=== PATIENT | male | born 1975 | race Hispanic/Latino ===

== ENCOUNTER 2024-12-19 09:06 | Emergency (ER) | payer OTHER ==
[~2024-12-19] VITALS: Ht 170.2 cm; Wt 83.9 kg
[~2024-12-19 09:06] MED LIST: CLINDAMYCIN HC150 MG PO; DOXYCYCLINE HY100 MG PO
[2024-12-19 09:20] VITALS: PULSE 104; RESP 17; TEMP 98.8; O2SAT 100
[2024-12-19] MEDS ORDERED: DEXAMETHASONE 4 MG TAB PO STA (09:57)
[2024-12-19] MEDS ORDERED: DOXYCYCLINE HY100 MG PO (10:00)
[2024-12-19] MEDS ORDERED: DEXAMETHASONE4 MG PO (10:00)
== END 2024-12-19 10:26 | disposition home or self-care (01) ==
LOC: ER 09:47
DX: R21 Rash and other nonspecific skin eruption (principal); F41.9 Anxiety disorder, unspecified; F17.210 Nicotine dependence, cigarettes, uncomplicated
CPT/HCPCS: 99282